=== PATIENT | male | born 1955 | race Caucasian/White ===

== ENCOUNTER → 2016-11-16 | Outpatient (CLI) | payer BC | LOC: EMI 11-09 10:45 | DX: M54.12 Radiculopathy, cervical region (principal); M25.78 Osteophyte, vertebrae; M99.71 Connective tissue and disc stenosis of intervertebral foramina of cervical region; M48.02 Spinal stenosis, cervical region | CPT/HCPCS: 72141 ==

== ENCOUNTER → 2016-12-28 | Outpatient (CLI) | payer BC ==
[2016-12-28 07:04] LABS: HEMOGLOBIN 13.8 gm/dl (14.0-17.5); RED BLOOD COUNT 4.35 M/UL (4.20-5.50); WHITE BLOOD COUNT 9.3 K/UL (4.5-11.0)
[2016-12-28 07:23] LABS: BUN/CREATININE RATIO 35 (0-10)
== END ==
LOC: LAB 06:43
PROVIDERS: Physician Assistant
DX: E11.9 Type 2 diabetes mellitus without complications (principal); E78.5 Hyperlipidemia, unspecified; I10 Essential (primary) hypertension
CPT/HCPCS: 36415; 80053; 80061; 82043; 82570; 83036; 85025

== ENCOUNTER 2020-11-30 13:18 | Emergency (ER) | payer MEDICARE, BC ==
[~2020-11-30 13:18] MED LIST: APPLE CIDER VI1 EACH PO; ASPIRIN CHEWABL81 MG PO; FISH OIL CONCE1 EAC1 PO; FLOMAX0.4 MG PO; IRON325 M1 PO; JANUMET 50-5001 EACH PO; LIPITOR TAB 2020 MG PO; OMEPRAZOLE20 M1 PO; PLAVIX 75 MG TA75 MG PO; PRINIVIL10 MG PO; TOPROL XL50 MG PO; VOLTAREN EC 5050 MG PO
[2020-11-30 14:20] LABS: HEMOGLOBIN 12.8 gm/dl (14.0-17.5); RED BLOOD COUNT 4.06 M/UL (4.20-5.50); WHITE BLOOD COUNT 6.9 K/UL (4.5-11.0)
[2020-11-30 15:03] LABS: BUN/CREATININE RATIO 22 (0-10)
== END 2020-11-30 17:59 | disposition home or self-care (01) ==
LOC: ER1 13:18
PROVIDERS: Emergency Medicine
DX: U07.1 COVID-19 (principal); R91.1 Solitary pulmonary nodule; E11.9 Type 2 diabetes mellitus without complications; E78.5 Hyperlipidemia, unspecified; I10 Essential (primary) hypertension
CPT/HCPCS: 71045; 80053; 85025; 85379; 99283; M0239

== ENCOUNTER → 2020-12-22 | Outpatient (CLI) | payer MEDICARE, BC ==
[2020-12-22 06:10] LABS: HEMOGLOBIN 12.6 gm/dl (14.0-17.5); RED BLOOD COUNT 3.92 M/UL (4.20-5.50); WHITE BLOOD COUNT 9.1 K/UL (4.5-11.0)
[2020-12-22 06:43] LABS: BUN/CREATININE RATIO 19 (0-10)
== END ==
LOC: LAB 05:48
PROVIDERS: Nurse Practitioner Family
DX: E78.5 Hyperlipidemia, unspecified (principal); I10 Essential (primary) hypertension; E53.8 Deficiency of other specified B group vitamins; E55.9 Vitamin D deficiency, unspecified
CPT/HCPCS: 36415; 80053; 80061; 82607; 84439; 84443; 85025

== ENCOUNTER → 2020-12-27 | Outpatient (CLI) | payer MEDICARE, BC ==
[2020-12-28 09:13] LABS: ALPHA-1-ANTITRYPSIN, SERUM 146 mg/dL (101-187); HBSAG SCREEN Negative (Negative); HEP A AB, IGM Negative (Negative); HEP B CORE AB, IGM Negative (Negative); HEP C VIRUS AB <0.1 (0.0-0.9)
[2020-12-28 15:08] LABS: MITOCHONDRIAL (M2) ANTIBODY <20.0 Units (0.0-20.0)
== END ==
LOC: LAB 15:12
PROVIDERS: Internal Medicine Gastroenterology
DX: R74.8 Abnormal levels of other serum enzymes (principal); R53.83 Other fatigue
CPT/HCPCS: 36415; 80074; 80076; 82103; 82728; 83540; 83550; 86038

== ENCOUNTER 2021-01-27 10:59 | Emergency (ER) | payer MEDICARE, BC | END 2021-01-27 12:14 | disposition left against medical advice (07) | LOC: ER1 10:59 | DX: Z53.21 Procedure and treatment not carried out due to patient leaving prior to being seen by health care provider (principal) ==

== ENCOUNTER → 2021-03-26 | Outpatient (CLI) | payer MEDICARE, BC | LOC: NM 02-17 13:00 | DX: R10.11 Right upper quadrant pain (principal) | CPT/HCPCS: 78226; A9537 ==

== ENCOUNTER → 2022-01-12 | Outpatient (CLI) | payer MEDICARE, BC ==
[2022-01-12 07:12] LABS: HEMOGLOBIN 13.8 gm/dl (14.0-17.5); RED BLOOD COUNT 4.28 M/UL (4.20-5.50); WHITE BLOOD COUNT 9.3 K/UL (4.5-11.0)
[2022-01-12 07:37] LABS: BUN/CREATININE RATIO 17 (0-10)
== END ==
LOC: LAB 06:28
PROVIDERS: Nurse Practitioner Family
DX: I48.91 Unspecified atrial fibrillation (principal); E78.5 Hyperlipidemia, unspecified; I10 Essential (primary) hypertension; E11.9 Type 2 diabetes mellitus without complications; E53.8 Deficiency of other specified B group vitamins; E55.9 Vitamin D deficiency, unspecified
CPT/HCPCS: 36415; 80053; 80061; 82570; 82607; 83036; 84156; 84436; 84439; 84443; 85025

== ENCOUNTER → 2022-01-22 | Outpatient (CLI) | payer MEDICARE, BC | LOC: ECHO 09:00 → NM 10:00 | DX: R06.02 Shortness of breath (principal) | CPT/HCPCS: ECHO; 78452; 93017; 93306; A9502; J2785 ==

== ENCOUNTER → 2022-03-31 | Outpatient (CLI) | payer MEDICARE, BC ==
[~2022-03-31] MED LIST changes: +ASTAXANTHIN4 MG PO; +CALCIUM CITRAT1 EA12 PO; +CENTRUM CHEWAB1 EAC2 PO; +CINNAMON500 MG PO; +CLARITIN10 M2 PO; +COD LIVER OIL1 EAC2 PO; +ELIQUIS5 MG PO; +FENUGREEK500 MG PO; +FOLIC ACID0.8 MG PO; +GLUCOPHAGE 500500 MG PO; +IRON18 MG PO; +LISINOPRIL5 MG PO; +METOPROLOL SUCC25 MG PO; +MULTAQ 400 MG400 MG PO; +OMEGA 3 FISH O1 EACH PO; +OMEPRAZOLE20 MG PO; +POTASSIUM GLUCO99 MG PO; +TAMSULOSIN HCL0.4 MG PO; +TYLENOL EXTRA500 MG PO; +VITAMIN D310 MC4 PO
[2022-03-31 08:19] LABS: HEMOGLOBIN 12.4 gm/dl (14.0-17.5); RED BLOOD COUNT 3.89 M/UL (4.20-5.50); WHITE BLOOD COUNT 7.2 K/UL (4.5-11.0)
[2022-03-31 08:51] LABS: BUN/CREATININE RATIO 18 (0-10)
== END ==
LOC: CATH 07:12
PROVIDERS: Internal Medicine Cardiovascular Disease
DX: Z01.818 Encounter for other preprocedural examination (principal); I48.19 Other persistent atrial fibrillation; I48.92 Unspecified atrial flutter; R00.2 Palpitations; R06.02 Shortness of breath; I10 Essential (primary) hypertension; E78.5 Hyperlipidemia, unspecified; E66.9 Obesity, unspecified; E11.9 Type 2 diabetes mellitus without complications; Z88.5 Allergy status to narcotic agent; Z88.0 Allergy status to penicillin; I45.10 Unspecified right bundle-branch block
CPT/HCPCS: 36415; 80048; 82962; 85027; 93005; J1200; J1742; J2250; J2310; J3010; J7040

== ENCOUNTER → 2022-04-07 | Outpatient (CLI) | payer MEDICARE, BC | LOC: LAB 10:34 | DX: B35.1 Tinea unguium (principal); Z79.899 Other long term (current) drug therapy | CPT/HCPCS: 36415; 80076 ==